=== PATIENT | male | born 1940 | race Caucasian/White ===

== ENCOUNTER 2017-04-30 09:35 | Inpatient (IN) | payer OTHER, MEDICARE ==
[~2017-04-30] VITALS: Ht 182.9 cm; Wt 92.0 kg
--- NOTE | ~2017-04-30 | CR72 ---
[facility] A Service of [facility] & [facility] RADIOLOGY TEXT RESULTS PATIENT: CIRA EASTON LOCATION: [facility] 317- : 39 UNIT #: [id number] AGE: [address]: Micheal Hill MD SEX: M ORDER DR: [id number] [facility] [address]. [place], [place] [address] [id number] I MR#: [id number] Acc #: [id number] NAME: CIRA EASTON : 1940 SEX: M STUDY DATE/TIME: 05/02/2017 5:58 UNIT: [address] ROOM: [facility] STUDY DESCRIPTION: CR Chest Single View Portable Attending Physician: Mallorie Hill M.D. Referring Physician: Martin Cooper M.D. Ordering Physician: Mallorie Hill M.D. Primary Care Physician: Martin Cooper M.D. MEDICAL IMAGING REPORT This report is preliminary unless electronic signature is present EXAM Single view chest INDICATION Shortness of air. Cough. Emphysema. TECHNIQUE AND COMPARISON Single portable AP view of the chest compared to 05/01/2017. FINDINGS Heart is mildly enlarged. The lungs are hyperinflated. No new pulmonary opacities. No pleural effusion. IMPRESSION No new findings. Stable cardiomegaly and COPD. Dictated by... Boom Humphrey M.D. THIS IS AN ELECTRONICALLY VERIFIED REPORT Boom Humphrey M.D. at 05/02/2017 3:09 PM ZULEYMA/chico TD: 05/02/2017 09:31 JOB #: [id number] MEDICAL IMAGING REPORT Page 1 of 1 COPY
--- NOTE | ~2017-04-30 | CR63 ---
[facility] A Service of [facility] RADIOLOGY TEXT RESULTS PATIENT: CIRA EASTON LOCATION: [facility] 317- : 39 UNIT #: [id number] AGE: [address]: Micheal Hill MD SEX: M ORDER DR: [id number] [facility] [address]. [place], [place] [address] [id number] I MR#: [id number] Acc #: [id number] NAME: CIRA EASTON. : 1940 SEX: M STUDY DATE/TIME: 05/01/2017 7:26 UNIT: [address] ROOM: [facility] STUDY DESCRIPTION: CR Chest 2 View Attending Physician: Mallorie Hill M.D. Referring Physician: Martin Cooper M.D. Ordering Physician: Mallorie Hill M.D. Primary Care Physician: Martin Cooper M.D. MEDICAL IMAGING REPORT This report is preliminary unless electronic signature is present EXAM Chest 05/01/2017 HISTORY 76-year-old male short of air, cough past 3 days. Patient is smoker. COMPARISON Portable chest 04/30/2017. FINDINGS Three views are recorded centered high and low. Cardiac size and configuration remain normal. Lungs are fully expanded with mild interstitial prominence and some flattening of both hemidiaphragms. There are no infiltrates. Costophrenic angles are blunted. Small effusions are not excluded. IMPRESSION 1. COPD. 2. Mild interstitial fibrosis. 3. Small bilateral effusions cannot be excluded. Dictated by... Elan Weeks M.D. THIS IS AN ELECTRONICALLY VERIFIED REPORT Elan Weeks M.D. at 05/01/2017 3:44 PM GIOVANNY/sole TD: 05/01/2017 14:05 JOB #: [id number] MEDICAL IMAGING REPORT [facility] A Service of [facility] RADIOLOGY TEXT RESULTS PATIENT: CIRA EASTON LOCATION: [facility] 317-01 : 39 UNIT #: [id number] AGE: [address]: Micheal Hill MD SEX: M ORDER DR: Page 1 of 1 COPY
--- NOTE | ~2017-04-30 | CR72 ---
[facility] A Service of [facility] & [facility] RADIOLOGY TEXT RESULTS PATIENT: CIRA EASTON LOCATION: [facility] 317-01 : 39 UNIT #: [id number] AGE: [address]: Micheal Hill MD SEX: M ORDER DR: [id number] [facility] [address] [facility]. [place], [place] [address] [id number] I MR#: [id number] Acc #: [id number] NAME: CIRA EASTON. : 1940 SEX: M STUDY DATE/TIME: 04/30/2017 UNIT: [facility] ROOM: [id number] STUDY DESCRIPTION: CR Chest Single View Portable Attending Physician: Mallorie Hill M.D. Referring Physician: Martin oCoper M.D. Ordering Physician: Virgil Newton M.D. Primary Care Physician: Martin Cooper M.D. MEDICAL IMAGING REPORT This report is preliminary unless electronic signature is present EXAM Chest portable 04/30/2017 1138 hours HISTORY 76-year-old man with 3-day history of shortness of air. History of diabetes, transverse myelitis, and leaky heart valve. COMPARISON 12/20/2012 FINDINGS Portable upright chest demonstrates the patient to be slightly rotated to the right. Heart size is within normal limits. There is a mildly tortuous aorta. The lungs are well inflated with slight increase in interstitial markings in the mid and lower lungs, as compared to 12/20/2012. An element of mild interstitial edema could be present. There are no effusions. IMPRESSION The heart size within normal limits. Lungs are well expanded. There is mild interstitial prominence in the mid and lower lungs, new from 12/20/2012. This could represent mild interstitial edema or interstitial pneumonitis. There is no pleural effusion or pneumothorax. Dictated by... Mary Ho M.D. THIS IS AN ELECTRONICALLY VERIFIED REPORT Mary Ho M.D. at 04/30/2017 9:02 PM DAWOOD/nigel STS. [facility] A Service of [facility] & [facility] RADIOLOGY TEXT RESULTS PATIENT: CIRA EASTON LOCATION: [facility] 317-01 : 39 UNIT #: [id number] AGE: [address]: Micheal Hill MD SEX: M ORDER DR: TD: 04/30/2017 17:17 JOB #: [id number] MEDICAL IMAGING REPORT Page 1 of 1 COPY
--- NOTE | ~2017-04-30 | DS ---
Unit #: [id number] #: [id number] Patient: CIRA EASTON [id number] [address] [place], [place] [address] [id number] I MR#: [id number] NAME: CIRA EASTON. ROOM: [facility] Age: 76 Sex: M Admission Date: 04/30/2017 : 1940 Discharge Date: 05/04/2017 Attending Physician: Mallorie Hill M.D. Referring Physician: Martin Cooper M.D. Primary Care Physician: Martin Cooper M.D. DISCHARGE SUMMARY HISTORY OF PRESENT ILLNESS Mr. Easton is a gentleman with a history of COPD who presented to the hospital on 04/30/2017 with a history of worsening shortness of breath, cough, congestion. No really clear infection. The patient has not been in the hospital for quite a long time. We have also not seen the patient in the office for a fairly extensive period of time. Is having 2 days of progressive shortness of air. Finally, the patient had to come in to the hospital. The patient was having some desaturations. Has a past medical history for diabetes and hypertension, as well. These seem to be under moderate control; therefore, the patient was admitted to the hospital for a course of IV antibiotics and IV steroids. HOSPITAL COURSE The patient's shortness of breath slowly improved. His oxygen requirements went back down to off by discharge. He had some elevated blood sugars, likely secondary to steroids; however, these have gone down as the dose of steroids has gone down, as well. DISCHARGE MEDICATIONS 1. Simvastatin 20 mg a day. 2. Lisinopril 40 mg a day. 3. Omnicef 300 mg b.i.d. 4. Prednisone 40 mg b.i.d. x1 day, 60 mg daily x1 day, 50 mg daily x1 day, 40 mg daily x1 day, 30 mg daily x1 day, 20 mg daily x1 day, 10 mg daily x1 day. 5. Alprazolam 0.5 mg p.o. t.i.d. p.r.n. 6. Metformin 500 mg p.o. q.i.d. 7. Tamsulosin 0.4 mg daily. 8. Combivent Respimat q.i.d. as needed. 9. Symbicort 160/4.5 mcg 2 puffs b.i.d. NOTE: Home medications include 3 more days of Omnicef plus a prednisone taper. DISPOSITION To home. FOLLOW-UP Follow up with Dr. Floyd's office in 4 weeks. Dictated by.Linda Hill M.D. Unit #: [id number] #: [id number] Patient: CIRA EASTON/andria TD: 05/05/2017 09:46 JOB #: [id number] DISCHARGE SUMMARY Page 1 of 1 X Micheal Hill MD X DISCHARGE SUMMARY
--- NOTE | ~2017-04-30 | EKG ---
PATIENT: CIRA EASTON UNIT #: [id number] Ventricular Rate: 83 BPM Atrial Rate: 83 BPM P-R Interval: 196 ms QRS Duration: 80 ms Q-T Interval: 344 ms QTC Calculation(Bezet): 404 ms P [place]: 14 degrees Calculated R [place]: -7 degrees Calculated T [place]: 11 degrees Diagnosis Line: Normal sinus rhythm Diagnosis Line: Normal ECG Diagnosis Line: When compared with ECG of 20-DEC-2012 14:59, Diagnosis Line: No significant change was found Diagnosis Line: Confirmed by DANIEL PINEDA MD ([id number]) on Diagnosis Line: 05/02/2017 7:27:44 AM INTERPRETING MD: EDWIN ENRIQUE
[~2017-04-30 09:35] MED LIST: ALPRAZOLAM0.25 MG PO; AMLODIPINE BESYL5 MG PO; AZOPT5 ML OP; COMBIVENT14.7 GM INH; FLOMAX0.4 M1 PO; FLORINEF0.1 MG PO; GABAPENTIN300 M2 PO; GLUCOPHAGE XR500 MG PO; LISINOPRIL PO; METFORMIN PO; TRAVATAN5 ML OP
[2017-04-30 10:36] LABS: BASOPHIL% 0.5 % (0-2.5); EOSINOPHIL% 0.2 % (0.0-7.0); HEMATOCRIT 42.4 % (38.0-50.0); HEMOGLOBIN 13.8 gm/dL (13.0-16.0); LYMPHOCYTE# 1.3 X10e3 (1.0-3.5); LYMPHOCYTE% 16.4 % (17.0-45.0); MEAN CELL VOLUME 97.2 FL (83-96); MEAN CORPUSCULAR HEMOGLOBIN 31.6 PG (28-34); MEAN CORPUSCULAR HGB CONC 32.6 g/dL (30-36); MEAN PLATELET VOLUME 9.1 FL (6.5-11.5); MONOCYTE# 1.6 X10e3 (0-1.0); MONOCYTE% 19.8 % (3.0-12.0); NEUTROPHIL% 63.1 % (40-75); PLATELET COUNT 187 X10e3 (140-420); RED BLOOD COUNT 4.36 X10e (3.90-5.60); RED CELL DISTRIBUTION WIDTH 12.6 % (11.0-15.5)
[2017-04-30 10:39] LABS: DIFF IND NO
[2017-04-30 10:59] LABS: ALBUMIN SERUM 3.4 g/dL (3.5-5.0); BILIRUBIN, DIRECT 0.3 mg/dL (0.0-0.2); BILIRUBIN,INDIRECT 1.2 mg/dL (0.0-0.9); BILIRUBIN,TOTAL 1.5 mg/dL (0.2-2.0); BUN/CREATININE RATIO 20.71; CALCIUM SERUM 8.6 mg/dL (8.4-10.2); CREATININE SERUM 1.4 mg/dL (0.6-1.4); GLOM FILT RATE Estimated 48.1 mL/min (>60); POTASSIUM 4.4 mmol/L (3.5-5.1); PROTEIN TOTAL SERUM 7.1 g/dL (6.0-8.3)
[2017-04-30 11:01] LABS: POC - CKMB 2.2 ng/mL (0.0-7.9); POC - TROPONIN <0.05 ng/mL (<=0.05)
[2017-04-30 12:03] LABS: POC - CKMB 3.2 ng/mL (0.0-7.9); POC - TROPONIN <0.05 ng/mL (<=0.05)
[2017-04-30] MEDS ORDERED: PATIENT'S PHARMACY (14:04)
[2017-04-30] MEDS ORDERED: COMBIVENT RESPIM4 GM INH (14:04)
[2017-04-30] MEDS ORDERED: SYMBICORT INH (14:04)
[2017-04-30] MEDS ORDERED: METFORMIN PO (14:04)
[2017-04-30] MEDS ORDERED: ALPRAZOLAM ER0.5 MG PO (14:05)
[2017-04-30] MEDS ORDERED: ZOCOR PO (14:05)
[2017-04-30] MEDS ORDERED: FLOMAX0.4 M1 PO (14:05)
[2017-04-30] MEDS ORDERED: LISINOPRIL PO (14:05)
[2017-05-01 05:35] LABS: HEMATOCRIT 45.5 % (38.0-50.0); HEMOGLOBIN 14.7 gm/dL (13.0-16.0); LYMPHOCYTE# 0.5 X10e3 (1.0-3.5); LYMPHOCYTE% 8.2 % (17.0-45.0); MEAN CELL VOLUME 97.2 FL (83-96); MEAN CORPUSCULAR HEMOGLOBIN 31.5 PG (28-34); MEAN CORPUSCULAR HGB CONC 32.4 g/dL (30-36); MONOCYTE# 0.3 X10e3 (0-1.0); MONOCYTE% 4.5 % (3.0-12.0); NEUTROPHIL# 4.9 X10e3 (1.5-7.1); NEUTROPHIL% 87.3 % (40-75); PLATELET COUNT 217 X10e3 (140-420); RED BLOOD COUNT 4.68 X10e (3.90-5.60); RED CELL DISTRIBUTION WIDTH 12.6 % (11.0-15.5); WHITE BLOOD COUNT 5.6 X10e3 (4.0-10.5)
[2017-05-01 05:40] LABS: DIFF IND NO
[2017-05-01 06:31] LABS: BUN/CREATININE RATIO 27.77; CREATININE SERUM 0.9 mg/dL (0.6-1.4); GLOM FILT RATE Estimated 82.1 mL/min (>60); POTASSIUM 4.5 mmol/L (3.5-5.1)
[2017-05-02 05:54] LABS: HEMATOCRIT 40.5 % (38.0-50.0); HEMOGLOBIN 13.2 gm/dL (13.0-16.0); MEAN CELL VOLUME 96.5 FL (83-96); MEAN CORPUSCULAR HEMOGLOBIN 31.4 PG (28-34); MEAN CORPUSCULAR HGB CONC 32.6 g/dL (30-36); MEAN PLATELET VOLUME 8.8 FL (6.5-11.5); RED BLOOD COUNT 4.19 X10e (3.90-5.60); RED CELL DISTRIBUTION WIDTH 12.6 % (11.0-15.5)
[2017-05-02 06:04] LABS: WHITE BLOOD COUNT 9.5 X10e3 (4.0-10.5)
[2017-05-02 07:21] LABS: CALCIUM SERUM 8.8 mg/dL (8.4-10.2); GLOM FILT RATE Estimated 72.3 mL/min (>60); POTASSIUM 4.5 mmol/L (3.5-5.1)
[2017-05-04 06:13] LABS: HEMOGLOBIN 13.2 gm/dL (13.0-16.0); MEAN CELL VOLUME 96.3 FL (83-96); MEAN CORPUSCULAR HEMOGLOBIN 31.7 PG (28-34); MEAN CORPUSCULAR HGB CONC 32.9 g/dL (30-36); MEAN PLATELET VOLUME 8.8 FL (6.5-11.5); RED BLOOD COUNT 4.15 X10e (3.90-5.60); RED CELL DISTRIBUTION WIDTH 12.8 % (11.0-15.5); WHITE BLOOD COUNT 9.5 X10e3 (4.0-10.5)
[2017-05-04 06:53] LABS: ALBUMIN SERUM 2.8 g/dL (3.5-5.0); BILIRUBIN,TOTAL 0.4 mg/dL (0.2-2.0); CALCIUM SERUM 8.7 mg/dL (8.4-10.2); GLOM FILT RATE Estimated 72.3 mL/min (>60); POTASSIUM 4.5 mmol/L (3.5-5.1); PROTEIN TOTAL SERUM 5.8 g/dL (6.0-8.3)
[2017-05-04] MEDS ORDERED: OMNICEF300 MG PO (15:07)
[2017-05-04] MEDS ORDERED: PREDNISONE (15:08)
== END 2017-05-04 16:55 | disposition home or self-care (01) | DRG 189 ==
LOC: CED 09:35 → CEDOF 15:50 → C3A PCU 15:50 → CEDOF 16:33 → CED 16:33 → C3A PCU 19:59 → CEDOF 19:59 → C3A PCU 05-04 16:55
PROVIDERS: Emergency Medicine; Internal Medicine Pulmonary Disease
DX: J96.20 Acute and chronic respiratory failure, unspecified whether with hypoxia or hypercapnia (principal); J44.1 Chronic obstructive pulmonary disease with (acute) exacerbation; E11.9 Type 2 diabetes mellitus without complications; I10 Essential (primary) hypertension; F17.210 Nicotine dependence, cigarettes, uncomplicated
CPT/HCPCS: 36415; 71010; 71020; 80048; 80053; 80076; 82553; 82947; 83880; 84484; 85025; 85027; 87040; 93005; 94640; 94664; 94760; 96374; 99285; J0456; J0696; J1650; J1815; J2920; J2930